=== PATIENT | female | born 1975 | race Caucasian/White ===

== ENCOUNTER 2017-02-24 01:22 | Emergency (ER) | payer OTHER ==
[2017-02-24 02:54] LABS: PLATELET COUNT 192 x10^3mcL (130-400)
[2017-02-24 02:57] LABS: BASOPHIL % 1.2 % (0-2); CALCIUM 8.1 mg/dL (8.5-10.1); CARBON DIOXIDE 31.2 mmol/L (21-32); CHLORIDE SERUM 109 mmol/L (98-107); CREATININE SERUM 0.8 mg/dL (0.6-1.0); GFR1 > 60 mL/min; GLUCOSE SERUM 91 mg/dL (74-106); POTASSIUM SERUM 3.2 mmol/L (3.5-5.1); RED CELL DISTRIBUTION WIDTH 16.2 % (11.5-14.5); SODIUM SERUM 146 mmol/L (136-145)
[2017-02-24 03:02] LABS: ALKALINE PHOSPHATASE 47 U/L (46-116); ALT/SGPT 14 U/L (14-59); AST/SGOT 12 U/L (15-37); BILIRUBIN TOTAL 0.4 mg/dL (0.20-1.00); TOTAL PROTEIN, SERUM 6.6 g/dL (6.4-8.2)
[2017-02-24 04:01] VITALS: BP 115/64
== END 2017-02-24 04:01 | disposition home or self-care (01) ==
LOC: ED 01:22
PROVIDERS: Emergency Medicine
DX: R51 Headache (principal)
CPT/HCPCS: J1885; J2270; Q0162

== ENCOUNTER 2017-10-14 23:04 | Emergency (ER) | payer OTHER ==
[2017-10-15 01:13] LABS: microscopic required? YES; urine erythrocyte TRACE (NEGATIVE)
[2017-10-15 03:14] VITALS: BP 104/66
== END 2017-10-15 03:14 | disposition home or self-care (01) ==
LOC: ED 23:04
PROVIDERS: Emergency Medicine
DX: N39.0 Urinary tract infection, site not specified (principal); N83.202 Unspecified ovarian cyst, left side
CPT/HCPCS: J1885; Q0092